=== PATIENT | female | born 1945 | race Caucasian/White ===

== ENCOUNTER 2018-04-07 12:22 | Outpatient (CLI) | payer MEDICARE | END 2018-04-07 12:23 | disposition home or self-care (01) | LOC: C.RADH 12:22 | DX: M79.671 Pain in right foot (principal) ==

== ENCOUNTER 2018-06-09 09:35 | Outpatient (CLI) | payer MEDICARE | END 2018-06-09 09:36 | disposition home or self-care (01) | LOC: C.MAMMO 09:35 | DX: Z12.31 Encounter for screening mammogram for malignant neoplasm of breast (principal) ==